=== PATIENT | female | born 1955 | race Caucasian/White ===

== ENCOUNTER 2019-04-26 06:59 | Emergency (ER) | payer BC ==
[2019-04-26 07:25] VITALS: BP 150/77
[2019-04-26] MEDS ORDERED: Sodium Chloride 0.9% 10 ML Syringe FLUSH PRN (07:33)
[2019-04-26] MEDS ORDERED: HYDROmorphone 1 MG/ML Syringe IVPUSH ONE (07:33)
[2019-04-26] MEDS ORDERED: Ketorolac 30 MG/ML SDV IVPUSH ONE (07:34)
--- NOTE | 2019-04-26 10:00 | EDM.PDOC ---
ED HPI GENERAL MEDICAL PROBLEM - General Chief Complaint: Back Pain or Injury Stated Complaint: BACK PAIN,PULLED A MUSCLE Time Seen by Provider: 04/26/19 07:17 Source of Information: Reports: Patient, Family History Limitations: Reports: No Limitations - History of Present Illness INITIAL COMMENTS - FREE TEXT/NARRATIVE: The patient presents with left lower back pain that radiated down her left leg. This started Friday night. Over the weekend she was sitting at her grandson 's baseball games and then that night she was crawling into bed and the pain started in her left lower back. The pain has not let up since. She was seen at the ER in [place] at [facility] and was given something for pain and a muscle relaxer but it has not helped. She has pain with standing and walking. She has no numbness or weakness. She has no bowel or bladder problems. She has not had problems with her back in the past. She has no fever or chills. She has no chest pain or shortness of breath. Onset: Sudden Duration: Day(s): (Friday) Location: Reports: Back Quality: Reports: Sharp Severity: Severe Improves with: Reports: Immobilization Worsens with: Reports: Movement Associated Symptoms: Reports: No Other Symptoms Left Lower Back Pain Score (Numeric/FACES): 9 - Related Data Allergies Allergy/AdvReac Type Severity Reaction Status Date / Time penicillin Allergy Intermediate Rash Verified 04/26/19 07:25 Home Meds: Home Meds Levothyroxine [Synthroid] 50 mcg PO DAILY 09/15/15 [History] Simvastatin [Zocor] 10 mg PO DAILY 09/15/15 [History] Cetirizine HCl [Zyrtec] 10 mg PO DAILY 07/23/16 [History] Losartan/Hydrochlorothiazide [Losartan-HCTZ 50-12.5 MG] 1 tab PO DAILY 07/23/16 [History] Multivitamin [Multivitamins] 1 each PO DAILY 07/23/16 [History] Cholecalciferol (Vitamin D3) [Vitamin D3] 5,000 unit PO DAILY 07/24/16 [History] oxyCODONE HCl/Acetaminophen [Percocet 5-325 mg Tablet] 1 each PO Q6HR PRN #24 tablet 07/26/16 [Rx] Celecoxib [CeleBREX] 200 mg PO DAILY 04/26/19 [History] Cyclobenzaprine [Flexeril] 10 mg PO TID PRN #20 tab 04/26/19 [Rx] Diazepam [Valium] 5 mg PO DAILY 04/26/19 [History] Hydrocodone/Acetaminophen [Hydrocodon-Acetaminophen 5-325] 1 - 2 each PO Q6HR PRN #20 tablet 04/26/19 [Rx] hydrOXYzine HCl [hydrOXYzine] 25 mg PO DAILY 04/26/19 [History] Past Medical History HEENT History: Reports: Impaired Vision Other HEENT History: allergic rhinitis, jaw and sinus surgery, glasses, upper denture Cardiovascular History: Reports: High Cholesterol, Hypertension Respiratory History: Reports: Bronchitis, Recurrent, Sleep Apnea, Other (See Below) Other Respiratory History: uses CPAP Gastrointestinal History: Reports: None Other Gastrointestinal History: abdominal pain Genitourinary History: Reports: None Other Genitourinary History: dysuria 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: Musculoskeletal History: Reports: Other (See Below) Other Musculoskeletal History: broken wrist as child, right sided hip pain, buldging disks Endocrine/Metabolic History: Reports: Hypothyroidism - Infectious Disease History Infectious Disease History: Reports: Shingles - Past Surgical History HEENT Surgical History: Reports: Other (See Below) GI Surgical History: Reports: Cholecystectomy, Colonoscopy, EGD, Hernia, Abdominal, Other (See Below) Female Surgical History: Reports: D&C, Dilitation & Evacuation, Hysterectomy , Tubal Ligation Endocrine Surgical History: Reports: None Oncologic Surgical History: Reports: Lumpectomy Social & Family History - Family History Family Medical History: Noncontributory - Tobacco Use Smoking Status *Q: Never Smoker - Caffeine Use Caffeine Use: Reports: Coffee - Recreational Drug Use Recreational Drug Use: No ED ROS GENERAL - Review of Systems Review Of Systems: See Below Constitutional: Reports: No Symptoms HEENT: Reports: No Symptoms Respiratory: Reports: No Symptoms Cardiovascular: Reports: No Symptoms Endocrine: Reports: No Symptoms GI/Abdominal: Reports: No Symptoms : Reports: No Symptoms Musculoskeletal: Reports: Back Pain (Left lower back) ED EXAM,LOWER BACK PAIN/INJURY - Physical Exam Exam: See Below Exam Limited By: No Limitations General Appearance: Alert, No Apparent Distress Ears: Normal External Exam Nose: Normal Inspection Head: Atraumatic, Normocephalic Neck: Normal Inspection Respiratory/Chest: No Respiratory Distress, Lungs Clear, Normal Breath Sounds Cardiovascular: Regular Rate, Rhythm, No Edema, No Murmur GI/Abdominal: Soft, Non-Tender, No Organomegaly, No Mass Back Exam: Other (Pain upon palpation to the left lower back) Extremities: Normal Inspection Neurological: No Motor/Sensory Deficits, Oriented x 3 Course - Vital Signs Last Recorded V/S: Last Vital Signs Temp 96.8 F 04/26/19 07:21 Pulse 70 04/26/19 07:21 Resp 16 04/26/19 07:21 BP 150/77 H 04/26/19 07:21 Pulse Ox 95 04/26/19 07:21 - Orders/Labs/Meds Orders: Active Orders 24 hr Category Date Time Status Peripheral IV Care [RC] . DIRECTED Care 04/26/19 07:33 Active Sodium Chloride 0.9% [Saline Flush] Med 04/26/19 07:33 Active 10 ml FLUSH ASDIRECTED PRN Peripheral IV Insertion Adult [OM.PC] Routine Oth 04/26/19 07:33 Ordered Medication Orders Sodium Chloride (Saline Flush) 10 ml FLUSH ASDIRECTED PRN PRN Reason: Keep Vein Open Last Admin: 04/26/19 07:53 Dose: 10 ml Meds: Medications Generic Name Dose Route Start Last Admin Trade Name Freq PRN Reason Stop Dose Admin Sodium Chloride 10 ml 04/26/19 07:33 04/26/19 07:53 Saline Flush FLUSH 10 ml ASDIRECTED PRN Administration Keep Vein Open Discontinued Medications Generic Name Dose Route Start Last Admin Trade Name Freq PRN Reason Stop Dose Admin Hydromorphone HCl 1 mg 04/26/19 07:33 04/26/19 07:50 Dilaudid IVPUSH 04/26/19 07:34 1 mg ONETIME ONE Administration Hydromorphone HCl 0.5 mg 04/26/19 10:01 04/26/19 10:15 Dilaudid IVPUSH 04/26/19 10:02 0.5 mg ONETIME ONE Administration Ketorolac Tromethamine 30 mg 04/26/19 07:34 04/26/19 07:49 Toradol IVPUSH 04/26/19 07:35 30 mg ONETIME ONE Administration - Re-Assessments/Exams Free Text/Narrative Re-Assessment/Exam: 04/26/19 09:59 I ordered an IV saline lock, dilaudid 1mg IV, and toradol 30mg IV. I also ordered an MRI of her back. I am waiting for the results now. 04/26/19 11:14 The MRI of her back shows degenerative change as noted above. Most prominent finding is mild central canal stenosis at L4-L5. This is an interval change from previous MRI. Other degenerative change as described above appears fairly stable from previous MRI. She had more pain so I ordered dilaudid 0.5mg IV. 04/26/19 11:20 Dr Almonte's office could not get her in until May 31. They will check with the nurses and they will call the patient for a time. Departure - Departure Time of Disposition: 11:25 Disposition: Home, Self-Care 01 Condition: Good Clinical Impression: Bulging lumbar disc Low back pain Qualifiers: Chronicity: acute Back pain laterality: left Sciatica presence: with sciatica Sciatica laterality: sciatica of left side Qualified Code(s): M54.42 - Lumbago with sciatica, left side - Discharge Information *PRESCRIPTION DRUG MONITORING PROGRAM REVIEWED*: No *COPY OF PRESCRIPTION DRUG MONITORING REPORT IN PATIENT DAGOBERTO: No Prescriptions: Hydrocodone/Acetaminophen [Hydrocodon-Acetaminophen 5-325] 1 - 2 each PO Q6HR PRN #20 tablet PRN Reason: Pain Cyclobenzaprine [Flexeril] 10 mg PO TID PRN #20 tab PRN Reason: Pain Referrals: Tiffanie Cherry NP [Primary Care Provider] - Black Almonte MD [Ordering Only Provider] - 1 Week Forms: ED Department Discharge, ED Return to Work/School Form Additional Instructions: Take the hydrocodone and flexeril as needed for pain. Take motrin or aleve for the pain. Try physical therapy. Follow up with Dr Almonte. Someone from his office will be calling you. Please return if you are worse. - My Orders Last 24 Hours: My Active Orders 04/26/19 07:33 Peripheral IV Care [RC] . DIRECTED Sodium Chloride 0.9% [Saline Flush] 10 ml FLUSH ASDIRECTED PRN Peripheral IV Insertion Adult [OM.PC] Routine - Assessment/Plan Last 24 Hours: My Active Orders 04/26/19 07:33 Peripheral IV Care [RC] . DIRECTED Sodium Chloride 0.9% [Saline Flush] 10 ml FLUSH ASDIRECTED PRN Peripheral IV Insertion Adult [OM.PC] Routine
[2019-04-26] MEDS ORDERED: HYDROmorphone 0.5 MG/0.5 ML Syringe IVPUSH ONE (10:01)
--- NOTE | 2019-04-26 10:48 | MR ---
MRI lumbar spine Technique: T1 and T2-weighted axial images were obtained from above the T12-L1 disc inferiorly through the L5-S1 discs. T1, T2 and fat-suppressed inversion recovery sagittal images were obtained. Comparison: Previous MRI lumbar spine exam of 01/18/11. Findings: T11-T12: Posterior disc is preserved. No central canal stenosis or neural foraminal stenosis is seen. T12-L1: Disc space narrowing is seen which is moderate in severity. Circumferential disc bulge is noted. Degenerative endplate signal change is seen. No central canal stenosis or neural foraminal stenosis is seen. L1-L2: Very slight posterior disc space narrowing is seen. Slight circumferential disc bulge is noted. Posterior disc maintains a concave margin. No central canal stenosis is seen. Neural foramina are patent where the nerve roots exit. L2-L3: Mild posterior disc space narrowing is seen. Mild degenerative endplate signal change is noted. Mild circumferential disc bulge is present. Posterior disc maintains a concave margin. No central canal stenosis is seen. Neural foramina are patent where the nerve roots exit. L3-L4 : Slight circumferential disc bulge is seen. Posterior disc maintains a concave margin. No central canal stenosis is seen. Neural foramina are patent where the nerve roots exit. L4-L5: Slight posterior disc space narrowing is seen. Mild circumferential disc bulge is noted. Very slight asymmetric bulge posterolaterally to the left of midline is seen. Mild degenerative apophyseal change is seen. Findings cause mild central canal stenosis. Minimal degenerative endplate signal change is seen posteriorly. L5-S1: Posterior disc is preserved. No central canal stenosis or neural foraminal stenosis is seen. Minimal degenerative apophyseal change is seen. Degenerative dehydration change noted throughout the lumbar discs. Conus medullaris and cauda equina show no abnormal signal or mass. Impression: 1. Degenerative change as noted above. Most prominent finding is mild central canal stenosis at L4-L5. This is an interval change from previous MRI. Other degenerative change as described above appears fairly stable from previous MRI. Diagnostic code #3
== END 2019-04-26 11:43 | disposition home or self-care (01) ==
LOC: JD.ED 06:59
DX: M51.86 Other intervertebral disc disorders, lumbar region (principal); E78.00 Pure hypercholesterolemia, unspecified; M54.42 Lumbago with sciatica, left side; I10 Essential (primary) hypertension; E03.9 Hypothyroidism, unspecified; Z88.0 Allergy status to penicillin; Z79.899 Other long term (current) drug therapy
CPT/HCPCS: 72148; 96374; 96375; 96376; 99283; J1170; J1885

== ENCOUNTER 2020-08-29 06:56 | Day surgery (SDC) | payer MEDICARE, BC ==
--- NOTE | 2020-08-28 14:04 | PCM.PREANE ---
Preanesthetic Assessment - Procedure Proposed Procedure: Laparoscopic Hernia Repair with Mesh (Incisional Hernia) - Anesthesia/Transfusion/Family Hx Anesthesia History: Prior Anesthesia Without Reaction Family History of Anesthesia Reaction: No Transfusion History: No Prior Transfusion(s) Intubation History: Unknown - Review of Systems General: No Symptoms Pulmonary: No Symptoms (SRIDHAR with CPAP/former smoker:smoked less than 1ppd for less than 5 years(40years ago)), Cough (post nasal drip/allergic rhinitis) Cardiovascular: No Symptoms (HTN, Elevated cholesterol, ) Gastrointestinal: No Symptoms (GERD), Abdominal Pain (upper addominal pain/epigastric pain (history of benign lymphangioma removal):12/27), Constipation, Diarrhea Neurological: No Symptoms (lower back pain:bulging disks), Numbness (thoracic neuralgia: periodic right leg) Other: Reports: None (History of jaw surgery), Thyroid Problems (hypothyroid), Sinus Problem (allergic rhinitis), Depression, Anxiety - Physical Assessment NPO Status Date: 08/28/20 NPO Status Time: 22:00 Vital Signs: HR:74 Sat:97% Temp:97.4 Resp:16 B/P:133/70 Height: 1.6 m Weight: 104 kg ASA Class: 2 Mental Status: Alert & Oriented x3 Airway Class: Mallampati = 2 Dentition: Reports: Normal Dentition, Dentures (top), Caries Thyro-Mental Finger Breadths: 3 Mouth Opening Finger Breadths: 3 ROM/Head Extension: Full Lungs: Clear to Auscultation, Normal Respiratory Effort Cardiovascular: Regular Rate, Regular Rhythm, No Murmurs - Lab Values: All labs reviewed and noted and within acceptable ranges to proceed with scheduled procedure. - Imaging/EKG Impressions: EKG: SR rate=70 - Allergies Allergies/Adverse Reactions: Allergies Allergy/AdvReac Type Severity Reaction Status Date / Time penicillin Allergy Intermediate Rash Verified 08/28/20 14:55 - Anesthesia Plan Pre-Op Medication Ordered: None - Acknowledgements Anesthesia Type Planned: General Anesthesia Pt an Appropriate Candidate for the Planned Anesthesia: Yes Alternatives and Risks of Anesthesia Discussed w Pt/Guardian: Yes Pt/Guardian Understands and Agrees with Anesthesia Plan: Yes PreAnesthesia Questionnaire HEENT History: Reports: Impaired Vision Other HEENT History: allergic rhinitis, jaw and sinus surgery, glasses, upper denture Cardiovascular History: Reports: High Cholesterol, Hypertension Respiratory History: Reports: Bronchitis, Recurrent, Sleep Apnea, Other (See Below) Other Respiratory History: uses CPAP Gastrointestinal History: Reports: None Other Gastrointestinal History: abdominal pain Genitourinary History: Reports: None Other Genitourinary History: dysuria 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: Musculoskeletal History: Reports: Other (See Below) Other Musculoskeletal History: broken wrist as child, right sided hip pain, buldging disks Endocrine/Metabolic History: Reports: Hypothyroidism - Infectious Disease History Infectious Disease History: Reports: Shingles - Past Surgical History HEENT Surgical History: Reports: Other (See Below) GI Surgical History: Reports: Cholecystectomy, Colonoscopy, EGD, Hernia, Abdominal, Other (See Below) Female Surgical History: Reports: D&C, Dilitation & Evacuation, Hysterectomy, Tubal Ligation Endocrine Surgical History: Reports: None Oncologic Surgical History: Reports: Lumpectomy - HOME MEDS Home Medications: Home Meds Simvastatin [Zocor] 10 mg PO DAILY 09/15/15 [History] Cholecalciferol (Vitamin D3) [Vitamin D3] 5,000 unit PO DAILY 07/24/16 [History] hydrOXYzine HCL [hydrOXYzine] 25 mg PO DAILY 04/26/19 [History] Aspirin/Caffeine [Virgilio Back-Body 500-32.5 mg] 1 tab PO DAILY 08/28/20 [History] Lactobacillus Combo No.10 [Probiotic] 1 cap PO DAILY 08/28/20 [History] Levothyroxine 75 mcg PO DAILY 08/28/20 [History] Losartan [Cozaar] 100 mg PO DAILY 08/28/20 [History] Omeprazole Magnesium [Prilosec Otc] 20 mg PO DAILY 08/28/20 [History] hydrOXYzine HCL [hydrOXYzine] 25 mg PO QPM 08/28/20 [History] - CURRENT (IN HOUSE) MEDS Current Meds: Current Medications Lactated Ringer's (Ringers, Lactated) 1,000 mls @ 125 mls/hr IV ASDIRECTED COLIN Stop: 08/29/20 23:00 Lidocaine/Sodium Bicarbonate (Buffered Lidocaine 1% In Ns 8.4%) 0.25 ml IDERM ONETIME PRN PRN Reason: Prior to IV Start Stop: 08/29/20 18:00 Sodium Chloride (Saline Flush) 10 ml FLUSH ASDIRECTED PRN PRN Reason: Keep Vein Open Stop: 08/29/20 18:00
[2020-08-29] MEDS ORDERED: Lidocaine 1%/Sod Bicarbonate in NS 8.4% 1 ML Syringe IDERM PRN (07:00)
[2020-08-29] MEDS ORDERED: Propofol 200 MG/20 ML SDV ONE (07:00)
[2020-08-29] MEDS ORDERED: Lactated Ringers 1,000 ML IV SCH (07:00)
[2020-08-29] MEDS ORDERED: Sodium Chloride 0.9% 10 ML Syringe FLUSH PRN (07:00)
[2020-08-29] MEDS ORDERED: Midazolam 1 MG/ML 2 ML SDV ONE (07:01)
[2020-08-29] MEDS ORDERED: fentaNYL 250 MCG/5 ML SDV ONE (07:01)
[2020-08-29] MEDS ORDERED: Ondansetron 4 MG/2 ML SDV ONE (07:14)
[2020-08-29] MEDS ORDERED: Rocuronium 50 MG/5 ML Vial ONE ×2 (07:14→08:57)
[2020-08-29] MEDS ORDERED: Lactated Ringers 1,000 ML ONE ×2 (07:14→09:01)
[2020-08-29] MEDS ORDERED: Lidocaine 1% 4 ML ONE (07:14)
[2020-08-29] MEDS ORDERED: ceFAZolin 1 GM Vial ONE (07:14)
[2020-08-29] MEDS ORDERED: Dexamethasone 4 MG/ML 5 ML MDV ONE (07:14)
[2020-08-29] MEDS ORDERED: HYDROmorphone 0.5 MG/0.5 ML Syringe ONE (07:15)
[2020-08-29] MEDS ORDERED: Bupivacaine 0.5%/EPINEPHrine 1:200,000 50 ML MDV ONE (07:23)
[2020-08-29] MEDS ORDERED: ePHEDrine Sulfate/0.9% NaCl/Pf 25 MG/5 ML SYRINGE IV ONE (08:24)
[2020-08-29] MEDS ORDERED: ePHEDrine 50 MG/ML SDV IVPUSH PRN (08:29)
[2020-08-29] MEDS ORDERED: diphenhydrAMINE 50 MG/ML SDV IVPUSH PRN (08:29)
[2020-08-29] MEDS ORDERED: fentaNYL 100 MCG/2 ML SDV IVPUSH PRN (08:29)
[2020-08-29] MEDS ORDERED: Ondansetron 4 MG/2 ML SDV IVPUSH PRN (08:29)
[2020-08-29] MEDS ORDERED: Albuterol 0.083% 2.5 MG/3 ML Neb Soln NEB PRN (08:30)
[2020-08-29] MEDS ORDERED: HYDROmorphone 0.5 MG/0.5 ML Syringe IVPUSH PRN (08:30)
--- NOTE | 2020-08-29 09:54 | PCM.POSTAN ---
POST ANESTHESIA ASSESSMENT - MENTAL STATUS Mental Status: Alert - VITAL SIGNS Vital Signs: Last Vital Signs Temp 97.1 08/29/20947 Pulse 74 08/29/20947 Resp 25 08/29/20947 BP 129/57 08/29/20947 Pulse Ox 97% 08/29/20947 - RESPIRATORY Respiratory Status: Respiratory Rate WNL, Airway Patent, O2 Saturation Stable, Supplemental Oxygen - CARDIOVASCULAR CV Status: Pulse Rate WNL, Blood Pressure Stable - GASTROINTESTINAL GI Status: No Symptoms - POST OP HYDRATION Hydration Status: Adequate & Stable
--- NOTE | 2020-08-29 11:31 | PCM.PRNOTE ---
- Free Text/Narrative Note: Operative Report Operation: laparoscopic incisional hernia repair Date: 08/29/2020 Attending Surgeon: Ayo Foley MD Indication for Surgery: symptomatic incisional hernia Preoperative antibiotics: 2 g ancef IV VTE prophylaxis: SCDs Estimated Blood Loss: 3 cc Findings: Incarcerated small bowel, with sao tomean cheese fascial defects along supraumbilical linea alba, three in total, all measuring about 15 mm in diameter. Adhesiolysis was required to reduce hernia contents. The defects were closed primarily prior to placement of coated intraperitoneal mesh for reinforcement. Detailed Report: The patient underwent general endotracheal anesthesia after being placed supine on the operating table. Time out was performed, confirming the patients identity and the operation to be performed. The left arm was tucked at the patients side. A santana catheter was placed. The abdomen was prepped and draped in sterile fashion. A Veress needle was inserted into the abdominal cavity below the left costal margin along the mid-clavicular line. The abdomen was insufflated with CO2 to 15 mm Hg. Air was aspirated at the left lower quadrant prior to placement of a bladed 5 mm trocar at this site. A 5 mm 30 degree laparoscope was inserted into the abdomen. The Veress needle appeared to have not caused any inadvertent trauma. There was small bowel stuck within the hernia sites. Additional 5 mm ports were placed at the left upper quadrant laterally and more medially near the sub costal margin. The Ligasure was used for adhesiolysis and reduction of herniated contents. The falciform ligament was then taken down with the Ligasure to allow room for placement of the mesh. Next, a Ventralite oval 15 x 20 cm piece of coated permanent mesh was prepared with anchoring 0 vicryl sutures at 4 quadrants and introduced into the abdomen through a midline 12 mm port that was inserted through the inferior-most fascial defect. The 12 mm port was then removed, and the PMI laparoscopic suture passer was used to close the fascial defects primarily with 0 vicryl suture. The mesh was then unfolded, and the suture passer was used to bring the transfacial sutures up through the abdominal wall. On tension, the mesh appeared to lie flat with good coverage of the fascial closure. The sutures were tied, and the SecureStrap was used to tack the mesh to the abdominal wall along its edge. An additional RUQ 5 mm port was placed to allow for tack placement along the left edge of the mesh. Pneumoperitoneum was released and ports removed. All skin incisions were then closed with placement of subcuticular vicryl suture and dressed with dermabond. A total of 30 cc 0.5 % marcaine with epinephrine was used for local anesthesia at the incision sites. The patient tolerated the operation well, was extubated in the operating room and transferred to the PACU for routine post-anesthesia care.
[2020-08-29] MEDS ORDERED: oxyCODONE 5 MG Tab PO PRN (11:38)
--- NOTE | 2020-08-29 11:41 | PCM48HPAN ---
Post Anesthesia Note - EVALUATION WITHIN 48HRS OF ANESTHETIC Vital Signs in Normal Range: Yes Patient Participated in Evaluation: Yes Respiratory Function Stable: Yes Airway Patent: Yes Cardiovascular Function Stable: Yes Hydration Status Stable: Yes Pain Control Satisfactory: Yes Nausea and Vomiting Control Satisfactory: Yes Mental Status Recovered: Yes Vital Signs: Last Vital Signs Temp 36.6 C 08/29/20 10:55 Pulse 70 08/29/20 10:55 Resp 21 H 08/29/20 10:55 BP 115/46 L 08/29/20 10:55 Pulse Ox 92 L 08/29/20 10:55
[2020-08-29] MEDS ORDERED: Ketorolac 30 MG/ML SDV IVPUSH ONE (12:53)
[2020-08-29 15:23] VITALS: BP 116/59; PULSE 94
== END 2020-08-29 17:00 | disposition home or self-care (01) ==
LOC: JD.SDS 06:56
PROVIDERS: ATTEND Surgery
DX: K43.2 Incisional hernia without obstruction or gangrene (principal); F41.9 Anxiety disorder, unspecified; F32.9 Major depressive disorder, single episode, unspecified; I10 Essential (primary) hypertension; E78.00 Pure hypercholesterolemia, unspecified; E03.9 Hypothyroidism, unspecified; G47.33 Obstructive sleep apnea (adult) (pediatric); Z88.0 Allergy status to penicillin; Z79.899 Other long term (current) drug therapy; Z79.890 Hormone replacement therapy; Z87.891 Personal history of nicotine dependence
CPT/HCPCS: 49654; 94640; A9270; C1781; J0171; J0690; J1100; J1170; J1885; J2001; J2250; J2370; J2405; J2704; J2710; J3010; J3490; J7120; 00790

== ENCOUNTER 2020-12-21 10:51 | Day surgery (SDC) | payer MEDICARE, BC ==
--- NOTE | 2020-12-20 08:31 | PCM.PREANE ---
Preanesthetic Assessment - Procedure Proposed Procedure: Screening Colonoscopy - Anesthesia/Transfusion/Family Hx Anesthesia History: Prior Anesthesia Without Reaction Family History of Anesthesia Reaction: No Transfusion History: No Prior Transfusion(s) Intubation History: Unknown - Review of Systems General: No Symptoms Pulmonary: No Symptoms (SRIDHAR with CPAP/former smoker:quit 41 years ago: smoked less than 1ppd for less than 5 yrs. ) Cardiovascular: No Symptoms (HTN, elevated cholesterol), Lightheadedness (po sitional changes) Gastrointestinal: No Symptoms (GERD-controlled), Constipation, Diarrhea, Vomiting (@ 1800 12/20/2020) Neurological: No Symptoms (lower back pain: bulging disks), Numbness (thoracic neuralgia: periodic right leg) Other: Reports: None (History of jaw surgery), Thyroid Problems (hypothyroid), Sinus Problem (sinusitis), Neck Pain, Depression, Anxiety - Physical Assessment NPO Status Date: 12/21/20 NPO Status Time: 04:30 Vital Signs: HR:76 Sat:96% Temp:97.8 B/P:127/70 Resp:18 Height: 1.6 m Weight: 103 kg ASA Class: 2 Mental Status: Alert & Oriented x3 Airway Class: Mallampati = 3 Dentition: Reports: Normal Dentition, Dentures (top), Caries Thyro-Mental Finger Breadths: 3 Mouth Opening Finger Breadths: 3 ROM/Head Extension: Full Lungs: Clear to Auscultation, Normal Respiratory Effort Cardiovascular: Regular Rate, Regular Rhythm, No Murmurs - Lab Values: All labs reviewed and noted and within acceptable ranges to proceed with scheduled procedure. - Imaging/EKG Impressions: EKG: SR rate=70 - Allergies Allergies/Adverse Reactions: Allergies Allergy/AdvReac Type Severity Reaction Status Date / Time penicillin Allergy Intermediate Rash Verified 08/28/20 14:55 - Anesthesia Plan Pre-Op Medication Ordered: None - Acknowledgements Anesthesia Type Planned: MAC Pt an Appropriate Candidate for the Planned Anesthesia: Yes Alternatives and Risks of Anesthesia Discussed w Pt/Guardian: Yes Pt/Guardian Understands and Agrees with Anesthesia Plan: Yes PreAnesthesia Questionnaire HEENT History: Reports: Impaired Vision Other HEENT History: allergic rhinitis, jaw and sinus surgery, glasses, upper denture Cardiovascular History: Reports: High Cholesterol, Hypertension Other Cardiovascular History: chest pain,edema Respiratory History: Reports: Bronchitis, Recurrent, Sleep Apnea, Other (See Below) Other Respiratory History: uses CPAP Gastrointestinal History: Reports: None Other Gastrointestinal History: abdominal pain Genitourinary History: Reports: None Other Genitourinary History: dysuria 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: Musculoskeletal History: Reports: Other (See Below) Other Musculoskeletal History: broken wrist as child, right sided hip pain, buldging disks Neurological History: Reports: None Psychiatric History: Reports: Anxiety, Depression Endocrine/Metabolic History: Reports: Hypothyroidism Hematologic History: Reports: Other (See Below) Other Hematologic History: low potassium Immunologic History: Reports: None Oncologic (Cancer) History: Reports: None Dermatologic History: Reports: Other (See Below) Other Dermatologic History: contact dermatitis, soft tissue lesion - Infectious Disease History Infectious Disease History: Reports: Shingles - Past Surgical History HEENT Surgical History: Reports: Other (See Below) GI Surgical History: Reports: Cholecystectomy, Colonoscopy, EGD, Hernia, Abdominal, Other (See Below) Female Surgical History: Reports: D&C, Dilitation & Evacuation, Hysterectomy, Tubal Ligation Endocrine Surgical History: Reports: None Oncologic Surgical History: Reports: Lumpectomy - HOME MEDS Home Medications: Home Meds Simvastatin [Zocor] 10 mg PO DAILY 09/15/15 [History] Cholecalciferol (Vitamin D3) [Vitamin D3] 5,000 unit PO DAILY 07/24/16 [History] Aspirin/Caffeine [Virgilio Back-Body 500-32.5 mg] 1 tab PO DAILY 08/28/20 [History] Lactobacillus Combo No.10 [Probiotic] 1 cap PO DAILY 08/28/20 [History] Levothyroxine 75 mcg PO DAILY 08/28/20 [History] Losartan [Cozaar] 100 mg PO DAILY 08/28/20 [History] Omeprazole Magnesium [Prilosec Otc] 20 mg PO DAILY 08/28/20 [History] hydrOXYzine HCL [hydrOXYzine] 25 mg PO QPM 08/28/20 [History] hydroCHLOROthiazide [Hydrochlorothiazide] 25 mg PO DAILY 08/29/20 [History] - CURRENT (IN HOUSE) MEDS Current Meds: Current Medications Lactated Ringer's (Ringers, Lactated) 1,000 mls @ 125 mls/hr IV ASDIRECTED COLIN Stop: 12/21/20 23:00 Lidocaine/Sodium Bicarbonate (Buffered Lidocaine 1% In Ns 8.4%) 0.25 ml IDERM ONETIME PRN PRN Reason: Prior to IV Start Stop: 12/21/20 18:00 Sodium Chloride (Saline Flush) 10 ml FLUSH ASDIRECTED PRN PRN Reason: Keep Vein Open Stop: 12/21/20 18:00
[~2020-12-21 10:51] MED LIST: Lactated Ringers 1,000 ML IV SCH; Lactated Ringers 1,000 ML ONE; Lidocaine 1% 4 ML ONE; Lidocaine 1%/Sod Bicarbonate in NS 8.4% 1 ML Syringe IDERM PRN; Sodium Chloride 0.9% 10 ML Syringe FLUSH PRN
[2020-12-21] MEDS ORDERED: Propofol 200 MG/20 ML SDV ONE ×2 (10:52→13:51)
[2020-12-21] MEDS ORDERED: fentaNYL 100 MCG/2 ML SDV ONE ×2 (10:52→13:37)
[2020-12-21] MEDS ORDERED: Lactated Ringers 1,000 ML ONE (13:06)
--- NOTE | 2020-12-21 14:12 | PCM.PRNOTE ---
- Free Text/Narrative Note: Date: 12/21/2020 Procedure: screening colonoscopy Endoscopist: Ayo Foley MD Findings: challenging navigation of sigmoid due to extensive diverticulosis and tight turn. Prep was fair. One small hyperplastic-appearing polyp identified in rectum. Detailed Report: The patient was taken to the endoscopy suite and placed in left lateral decubitus position. Timeout was performed and monitored anesthesia care was initiated. Visual inspection of the anus revealed no abnormality. Digital rectal exam was unremarkable. The colonoscope was inserted and advanced all the way to the cecum. Navigation beyond the sigmoid was quite challenging due to extensive diverticulosis and a tight turn from the sigmoid to the descending colon. However, with care and persistence the scope was able to be advanced all the way to the cecum. The appendiceal orifice and ileocecal valve were visualized. Prep was fair. The scope was slowly withdrawn and mucosal surfaces inspected. The diverticulosis was primarily involving the sigmoid colon. No polyps were identified, except for a small flat polypoid lesion in the proximal rectum which appeared to be a hyperplastic polyp. This was biopsied with forceps, and the tissue base was fulgurated. On retroflexion within the rectum, no hemorrhoids were noted. Air was suctioned from the distal colon and rectum prior to withdrawal of the scope. The patient tolerated the procedure well.
--- NOTE | 2020-12-21 14:26 | PCM48HPAN ---
Post Anesthesia Note - EVALUATION WITHIN 48HRS OF ANESTHETIC Vital Signs in Normal Range: Yes Patient Participated in Evaluation: Yes Respiratory Function Stable: Yes Airway Patent: Yes Cardiovascular Function Stable: Yes Hydration Status Stable: Yes Pain Control Satisfactory: Yes Nausea and Vomiting Control Satisfactory: Yes Mental Status Recovered: Yes Vital Signs: Last Vital Signs Temp 36.6 C 12/21/20 10:45 Pulse 76 12/21/20 10:45 Resp 18 12/21/20 10:45 BP 127/70 12/21/20 10:45 Pulse Ox 96 12/21/20 10:45
[2020-12-21 14:33] VITALS: PULSE 85
[2020-12-21 14:51] VITALS: BP 125/65
== END 2020-12-21 14:46 | disposition home or self-care (01) ==
LOC: JD.SDS 10:51
PROVIDERS: ATTEND Surgery
DX: Z12.11 Encounter for screening for malignant neoplasm of colon (principal); K62.1 Rectal polyp; K57.30 Diverticulosis of large intestine without perforation or abscess without bleeding; E78.00 Pure hypercholesterolemia, unspecified; E03.9 Hypothyroidism, unspecified; G47.33 Obstructive sleep apnea (adult) (pediatric); E55.9 Vitamin D deficiency, unspecified; Z98.890 Other specified postprocedural states; Z87.891 Personal history of nicotine dependence; Z88.0 Allergy status to penicillin; Z79.899 Other long term (current) drug therapy; Z79.890 Hormone replacement therapy
CPT/HCPCS: 45380; J2704; J3010; J7120; 00812; 88305

== ENCOUNTER 2023-12-08 17:53 | Inpatient (IN) | payer MEDICARE ==
[2023-12-08] MEDS ORDERED: Ondansetron 4 MG/2 ML SDV IVPUSH ONE (18:50)
[2023-12-08] MEDS ORDERED: Sodium Chloride 0.9% 10 ML Syringe FLUSH PRN (18:50)
[2023-12-08] MEDS ORDERED: Famotidine 20 MG/2 ML SDV IVPUSH ONE (18:53)
[2023-12-08] MEDS ORDERED: Sodium Chloride 0.9% 1,000 ML IV SCH (19:00)
[2023-12-08] MEDS: Potassium Chloride 10 MEQ in Premix Bag 1 BAG IV SCH ×4 (20:19→23:41)
[2023-12-08 20:34] LABS: MAGNESIUM 1.5 mg/dL (1.8-2.4)
[2023-12-08] MEDS ORDERED: Magnesium Sulfate (4.06 MEQ/ML) 5 GM/10 ML SDV IV ONE (21:59)
[2023-12-08] MEDS ORDERED: Sodium Chloride 0.9% 1,000 ML ONE (22:07)
[2023-12-08] MEDS ORDERED: Magnesium Sulfate/Water 2 GM in Premix Bag 1 BAG IV ONE (22:15)
[2023-12-08] MEDS: Sodium Chloride 0.9% 1,000 ML IV SCH (22:24)
[2023-12-09 05:40] LABS: ANION GAP 13.5 (5-15); BUN/CREATININE RATIO 13.3 (14-18); CALCIUM 8.8 mg/dL (8.5-10.1); CREATININE 0.9 mg/dL (0.55-1.02); EST CRCL DRUG DOSING (CG) 49.49 mL/min; MAGNESIUM 2.1 mg/dL (1.8-2.4)
[2023-12-09 05:56] LABS: POTASSIUM,K 2.5 mEq/L (3.5-5.1)
[2023-12-09 07:36] LABS: HEMOGLOBIN A1C 6.4 %
[2023-12-09] MEDS: Enoxaparin 40 MG/0.4 ML Syringe SUBCUT SCH (08:03)
[2023-12-09] MEDS: Potassium Chloride 10 MEQ in Premix Bag 1 BAG IV SCH ×4 (08:03→18:28)
[2023-12-09] MEDS: Sucralfate 1 GM Tab PO SCH ×5 (08:03→20:31)
[2023-12-09] MEDS: Cholecalciferol (Vitamin D3) 5,000 UNIT Cap PO SCH (08:03)
[2023-12-09] MEDS: Insulin Lispro 100 Unit/ML 3 ML KwikPen SUBCUT SCH ×3 (08:44→18:28)
[2023-12-09] MEDS: Sodium Chloride 0.9% 1,000 ML IV SCH (08:57)
[2023-12-09] MEDS ORDERED: Pantoprazole 40 MG Vial IVPUSH SCH (09:00)
[2023-12-09] MEDS: Dextrose 5%-0.9% NaCl 1,000 ML IV SCH (13:29)
[2023-12-09] MEDS ORDERED: Loperamide 2 MG Cap PO PRN (15:14)
[2023-12-09] MEDS ORDERED: Loperamide 2 MG Cap PO ONE (15:16)
[2023-12-09] MEDS ORDERED: Potassium Chloride 20 MEQ Tab.ER PO ONE (15:30)
[2023-12-09] MEDS ORDERED: Pravastatin 20 MG Tab PO SCH (21:00)
[2023-12-10] MEDS: Dextrose 5%-0.9% NaCl 1,000 ML IV SCH (04:01)
[2023-12-10 05:54] LABS: HEMATOCRIT 41.9 % (37.0-47.0); MEAN CORPUSCULAR HEMOGLOBIN 28.7 pg (28.0-32.0); MEAN CORPUSCULAR HGB CONC 33.4 g/dl (32.0-36.0); MEAN PLATELET VOLUME 10.7 fl (9.4-12.3); PLATELET COUNT,PLT 377 K/mm3 (150-400); RED BLOOD CELL COUNT 4.87 M/mm3 (4.10-5.30); WHITE BLOOD CELL COUNT,WBC 9.65 K/mm3 (3.9-11.3)
[2023-12-10] MEDS ORDERED: Levothyroxine 88 MCG Tab PO SCH (06:00)
[2023-12-10] MEDS: Insulin Lispro 100 Unit/ML 3 ML KwikPen SUBCUT SCH ×2 (07:52→11:04)
[2023-12-10] MEDS: Sucralfate 1 GM Tab PO SCH (08:36)
[2023-12-10] MEDS: Cholecalciferol (Vitamin D3) 5,000 UNIT Cap PO SCH (08:36)
[2023-12-10] MEDS: Enoxaparin 40 MG/0.4 ML Syringe SUBCUT SCH (08:36)
[2023-12-10] MEDS ORDERED: Pantoprazole 40 MG Tab.CR PO SCH (09:00)
[2023-12-10] MEDS ORDERED: Labetalol 100 MG/20 ML MDV IVPUSH PRN (09:14)
[2023-12-10] MEDS ORDERED: Labetalol 100 MG/20 ML MDV IV PRN (09:35)
[2023-12-10] MEDS ORDERED: Hydrochlorothiazide 25 MG Tab PO SCH (10:00)
[2023-12-10] MEDS ORDERED: Losartan 100 MG Tab PO SCH (10:00)
[2023-12-10] MEDS ORDERED: Spironolactone 25 MG Tab PO SCH (10:00)
[2023-12-10 12:13] VITALS: BP 129/58; PULSE 80
== END 2023-12-10 12:50 | disposition home or self-care (01) | DRG 641 ==
LOC: JD.ED 17:53 → JD.MS 22:34
PROVIDERS: ADMIT Student in an Organized Health Care Education/Training Program; ATTEND Student in an Organized Health Care Education/Training Program
DX: E87.6 Hypokalemia (principal); E87.1 Hypo-osmolality and hyponatremia; E83.42 Hypomagnesemia; K27.9 Peptic ulcer, site unspecified, unspecified as acute or chronic, without hemorrhage or perforation; R19.7 Diarrhea, unspecified; E78.00 Pure hypercholesterolemia, unspecified; I10 Essential (primary) hypertension; E86.0 Dehydration; E03.9 Hypothyroidism, unspecified; F41.9 Anxiety disorder, unspecified; F32.A Depression, unspecified; Z90.710 Acquired absence of both cervix and uterus; Z88.0 Allergy status to penicillin; Z79.890 Hormone replacement therapy; Z79.899 Other long term (current) drug therapy; Z79.84 Long term (current) use of oral hypoglycemic drugs; Z98.51 Tubal ligation status; Z98.890 Other specified postprocedural states; Z90.49 Acquired absence of other specified parts of digestive tract
CPT/HCPCS: 36415; 80048; 82947; 83036; 83690; 83735; 84132; 84443; 85027; 87507; 96361; 96365; 96366; 96375; 99284-25; 99285; A9270-GY; C9113; J1650; J1815; J2405; J3475; J3480; J3490; J7030; J7042

== ENCOUNTER 2024-03-10 13:52 | Observation (INO) | payer MEDICARE ==
[2024-03-10] MEDS: Aluminum Hydroxide/Magnesium Hydroxide/Simethicone Susp 30 ML Cup PO ONE (15:46)
[2024-03-10] MEDS: Potassium Chloride 20 MEQ Tab.ER PO ONE ×2 (15:46→23:15)
[2024-03-10] MEDS: Magnesium Sulfate/Water 2 GM in Premix Bag 1 BAG IV ONE (16:37)
[2024-03-10] MEDS: Sodium Chloride 0.9% 1,000 ML IV ONE (16:37)
[2024-03-10] MEDS: Famotidine 20 MG/2 ML SDV IVPUSH ONE (16:37)
[2024-03-10 20:02] LABS: ALBUMIN 2.9 g/dl (3.4-5.0); ANION GAP 14.7 (5-15); BILIRUBIN TOTAL 0.5 mg/dL (0.2-1.0); BUN/CREATININE RATIO 14.4 (14-18); CALCIUM 8.9 mg/dL (8.5-10.1); CREATININE 0.9 mg/dL (0.55-1.02); EST CRCL DRUG DOSING (CG) 49.49 mL/min; POTASSIUM,K 2.7 mEq/L (3.5-5.1); PROTEIN TOTAL,TP 5.9 g/dl (6.4-8.2)
[2024-03-10] MEDS: Potassium Chloride 10 MEQ in Premix Bag 1 BAG IV SCH (23:16)
[2024-03-10] MEDS: Sodium Chloride 0.9% 250 ML IV SCH (23:34)
[2024-03-11] MEDS ORDERED: Ondansetron 4 MG/2 ML SDV IVPUSH PRN
[2024-03-11] MEDS: Potassium Chloride 100 ML ONE (04:19)
[2024-03-11] MEDS ORDERED: ESTRADIOL VAG PRN (06:26)
[2024-03-11] MEDS ORDERED: Nystatin Crm 30 GM Tube TOP PRN (06:26)
[2024-03-11 07:10] LABS: BASOPHILS PERCENT AUTO 0.4 % (0.0-1.0); EOSINOPHILS PERCENT AUTO 0.4 % (0.0-6.0); HEMATOCRIT 38.5 % (37.0-47.0); IMMATURE GRAN ABSOLUTE AUTO 0.12 K/mm3 (0.00-0.05); IMMATURE GRAN PERCENT AUTO 1.1 % (0.0-0.4); LYMPHOCYTES ABSOLUTE AUTO 1.7 K/mm3 (1.0-4.8); LYMPHOCYTES PERCENT AUTO 15.1 % (24.0-44.0); MEAN CORPUSCULAR HEMOGLOBIN 28.6 pg (28.0-32.0); MEAN CORPUSCULAR HGB CONC 33.8 g/dl (32.0-36.0); MEAN CORPUSCULAR VOLUME 84.8 fl (83.0-99.0); MEAN PLATELET VOLUME 9.6 fl (9.4-12.3); MONOCYTES PERCENT AUTO 9.4 % (0.0-8.0); NEUTROPHILS ABSOLUTE AUTO 8.1 K/mm3 (1.8-7.7); NEUTROPHILS PERCENT AUTO 73.6 % (41.0-71.0); PLATELET COUNT,PLT 341 K/mm3 (150-400); RED BLOOD CELL COUNT 4.54 M/mm3 (4.10-5.30); WHITE BLOOD CELL COUNT,WBC 11.04 K/mm3 (3.9-11.3)
[2024-03-11 07:40] LABS: A/G RATIO 0.9 (1-2); ALBUMIN 2.9 g/dl (3.4-5.0); ANION GAP 15.7 (5-15); BILIRUBIN TOTAL 0.4 mg/dL (0.2-1.0); BUN/CREATININE RATIO 13.3 (14-18); CALCIUM 8.6 mg/dL (8.5-10.1); CREATININE 0.6 mg/dL (0.55-1.02); EST CRCL DRUG DOSING (CG) 74.23 mL/min; POTASSIUM,K 3.7 mEq/L (3.5-5.1); PROTEIN TOTAL,TP 6.2 g/dl (6.4-8.2)
[2024-03-11] MEDS: Spironolactone 25 MG Tab PO SCH (10:24)
[2024-03-11] MEDS: Loperamide 2 MG Cap PO PRN (10:25)
[2024-03-11] MEDS: METFORMIN 500 MG PO SCH (10:26)
[2024-03-11] MEDS: ESOMEPRAZOLE MAGNESIUM 20 MG PO SCH (10:26)
[2024-03-11] MEDS: SUCRALFATE 1 GM PO SCH (10:27)
[2024-03-11] MEDS: HYDROCHLOROTHIAZIDE 25 MG PO SCH (10:28)
[2024-03-11 15:08] VITALS: BP 133/82; PULSE 80
[2024-03-11] MEDS ORDERED: HYDROCHLOROTHIAZIDE 25 MG PO SCH (21:00)
[2024-03-11] MEDS ORDERED: LOSARTAN 100 MG PO SCH (21:00)
[2024-03-11] MEDS ORDERED: SIMVASTATIN 40 MG PO SCH (21:00)
[2024-03-11] MEDS ORDERED: hydrOXYzine HCl 25 MG Tab PO SCH (21:00)
[2024-03-11] MEDS ORDERED: LEVOTHYROXINE 88 MCG PO SCH (21:00)
== END 2024-03-11 15:03 | disposition home or self-care (01) ==
LOC: JD.ED 13:52 → JD.MS 21:26
PROVIDERS: ADMIT Internal Medicine; ATTEND Internal Medicine
DX: E87.6 Hypokalemia (principal); K44.9 Diaphragmatic hernia without obstruction or gangrene; K21.9 Gastro-esophageal reflux disease without esophagitis; I10 Essential (primary) hypertension; E87.1 Hypo-osmolality and hyponatremia; E03.9 Hypothyroidism, unspecified; E78.00 Pure hypercholesterolemia, unspecified; F32.A Depression, unspecified; F41.9 Anxiety disorder, unspecified; Z79.890 Hormone replacement therapy; Z79.899 Other long term (current) drug therapy; Z88.0 Allergy status to penicillin
CPT/HCPCS: 36415; 80053; 83690; 83735; 85025; 93005; 93010; 99285; A9270-GY; J3475; J3480; J3490; J7030; J7050

== ENCOUNTER 2024-08-23 06:00 | Day surgery (SDC) | payer MEDICARE ==
[~2024-08-23 06:00] MED LIST changes: -Lactated Ringers 1,000 ML IV SCH; -Lactated Ringers 1,000 ML ONE; -Lidocaine 1% 4 ML ONE; -Lidocaine 1%/Sod Bicarbonate in NS 8.4% 1 ML Syringe IDERM PRN
[2024-08-23] MEDS: Lactated Ringers 1,000 ML IV SCH (06:15)
[2024-08-23] MEDS ORDERED: Clindamycin Phosphate in D5W 900 MG in Premix Bag 1 BAG IV ONE (06:18)
[2024-08-23] MEDS ORDERED: Midazolam 1 MG/ML 2 ML SDV ONE (06:30)
[2024-08-23] MEDS ORDERED: Propofol 200 MG/20 ML SDV ONE ×6 (06:30→07:48)
[2024-08-23] MEDS ORDERED: Ropivacaine 0.5% 5 MG/ML 30 ML SDV ONE (07:19)
[2024-08-23] MEDS ORDERED: Dexamethasone 4 MG/ML 5 ML MDV ONE (07:20)
[2024-08-23] MEDS ORDERED: Ondansetron 4 MG/2 ML SDV ONE (07:20)
[2024-08-23] MEDS ORDERED: Ketorolac 30 MG/ML SDV ONE (07:20)
[2024-08-23] MEDS ORDERED: Lidocaine 1% 2 ML ONE (07:43)
[2024-08-23] MEDS ORDERED: Lactated Ringers 1,000 ML IV ONE (07:45)
[2024-08-23] MEDS ORDERED: EPINEPHrine 1 MG/ML SDV ONE (08:01)
[2024-08-23] MEDS: Morphine 8 MG, EPINEPHrine 0.3 MG, Cefuroxime 750 MG, Ketorolac 30 MG, Sodium Chloride ... PRN (08:07)
[2024-08-23] MEDS ORDERED: fentaNYL 100 MCG/2 ML SDV IVPUSH PRN (08:08)
[2024-08-23] MEDS ORDERED: Ondansetron 4 MG/2 ML SDV IVPUSH PRN (08:08)
[2024-08-23] MEDS ORDERED: HYDROmorphone 0.5 MG/0.5 ML Syringe IVPUSH PRN (08:08)
[2024-08-23] MEDS: Tranexamic Acid 1,000 MG/10 ML Vial ONE (08:14)
[2024-08-23] MEDS: Vancomycin 1 GM SDV ONE (08:14)
[2024-08-23] MEDS ORDERED: Labetalol 100 MG/20 ML MDV ONE (08:19)
[2024-08-23] MEDS ORDERED: Sodium Chloride 0.9% 10 ML Syringe FLUSH SCH (09:00)
[2024-08-23] MEDS: oxyCODONE 5 MG Tab PO PRN (10:14)
[2024-08-23 12:53] VITALS: BP 139/64; PULSE 85
== END 2024-08-23 12:45 | disposition home or self-care (01) ==
LOC: JD.SDS 06:00
PROVIDERS: ATTEND Orthopaedic Surgery
DX: M17.12 Unilateral primary osteoarthritis, left knee (principal); I10 Essential (primary) hypertension; G47.30 Sleep apnea, unspecified; E78.00 Pure hypercholesterolemia, unspecified; E03.9 Hypothyroidism, unspecified; K57.30 Diverticulosis of large intestine without perforation or abscess without bleeding; Z87.891 Personal history of nicotine dependence; Z79.890 Hormone replacement therapy; Z79.899 Other long term (current) drug therapy; Z88.0 Allergy status to penicillin
CPT/HCPCS: 0055T; 27447; 64447; 73560; 97110; 97161; C1713; C1776; J0171; J0697; J0736; J1100; J1885; J1921; J2250; J2270; J2405; J2704; J2795; J3370; J7120; 01402; A9270-GY; J3490